=== PATIENT | male | born 1990 | race Caucasian/White ===

== ENCOUNTER 2023-07-06 16:28 | Emergency (ER) | payer OTHER ==
[2023-07-06 16:43] VITALS: TEMP 98.5; BMI 25.9
[2023-07-06] MEDS ORDERED: HALOPERIDOL LACTATE 5 MG/ML IM ONE (17:19)
[2023-07-06] MEDS ORDERED: HALOPERIDOL LACTATE 5 MG/ML ONE (17:23)
[2023-07-06 18:33] LABS: BASO % 0.2 % (0-2.0); HEMATOCRIT 45.8 % (35.4-49); HEMOGLOBIN 15.4 GM/dL (11.7-16.9); MCH 28.2 pg (25.7-33.7); MCHC 33.6 g/dl (32.0-35.9); MEAN PLT VOLUME 8.2 fl (7.5-11.1); MONO % 1.1 % (3.8-10.2); NEUT % 87.7 % (42.8-82.8); PLATELET COUNT 243 10^3/uL (134-434); RBC 5.46 M/mm3 (4.00-5.60); RDW 14.1 % (11.9-15.9); WHITE BLOOD COUNT 10.7 K/mm3 (4.0-10.0)
[2023-07-06 18:58] LABS: POTASSIUM 3.9 mmol/L (3.5-5.1)
[2023-07-06 19:00] LABS: CALCIUM 9.6 mg/dL (8.5-10.1)
[2023-07-06 19:01] LABS: ALBUMIN 4.6 g/dl (3.4-5.0); BLOOD UREA NITROGEN 13.4 mg/dL (7-18)
[2023-07-06 19:04] LABS: CREATININE 0.8 mg/dL (0.55-1.3)
[2023-07-06 19:05] LABS: BILIRUBIN,TOTAL 0.4 mg/dL (0.2-1); TOT PROT 8.4 g/dl (6.4-8.2)
[2023-07-06 20:01] VITALS: BP 161/79; PULSE 80; RESP 19
== END 2023-07-06 20:07 | disposition home or self-care (01) ==
LOC: JER 16:28
PROC: 3E023GC Introduction of Other Therapeutic Substance into Muscle, Percutaneous Approach (ICD-10-PCS; principal; 2023-07-06)
DX: R10.13 Epigastric pain (principal); R11.2 Nausea with vomiting, unspecified; F11.20 Opioid dependence, uncomplicated
CPT/HCPCS: 36415; 80053; 83690; 85025; 99284-25

== ENCOUNTER 2023-07-06 21:16 | Inpatient (IN) | payer OTHER ==
[2023-07-06 15:47] VITALS: BMI 25.9
[~2023-07-06 21:16] MED LIST: TRIMETHOBENZAMIDE HCL 200MG/2ML INJ IM ONE
[2023-07-07] MEDS ORDERED: NALOXONE HCL 0.4 MG/ML VIAL IM PRN (00:04)
[2023-07-07] MEDS ORDERED: LOPERAMIDE HCL 2 MG CAPSULE PO PRN (00:04)
[2023-07-07] MEDS ORDERED: MAGNESIUM HYDROX 2400MG/30ML ORAL SUSPENSION 30 ML CUP PO PRN (00:04)
[2023-07-07] MEDS ORDERED: ONDANSETRON *ODT* 4 MG TABLET SL PRN (00:04)
[2023-07-07] MEDS ORDERED: NALOXONE HCL (KLOXXADO) 8 MG SPRAY NS PRN (00:04)
[2023-07-07] MEDS ORDERED: BISMUTH SUBSALICYLATE 524 MG/30 ML PO PRN (00:04)
[2023-07-07] MEDS ORDERED: guaiFENesin 600 MG TABLET.ER (FP) PO PRN (00:04)
[2023-07-07] MEDS ORDERED: POLYETHYLENE GLYCOL (HEALTHYLAX) 3350 17 GM PACKET PO PRN (00:04)
[2023-07-07] MEDS ORDERED: NICOTINE POLACRILEX 2 MG GUM BUC PRN (00:04)
[2023-07-07] MEDS ORDERED: BENZONATATE 200 MG CAPSULE PO PRN (00:04)
[2023-07-07] MEDS ORDERED: DICYCLOMINE HCL 10 MG CAPSULE PO PRN (00:04)
[2023-07-07] MEDS ORDERED: BENZOCAINE/MENTHOL (CHLORASEPTIC ) LOZENGE MM PRN (00:04)
[2023-07-07] MEDS ORDERED: IBUPROFEN 400 MG TABLET (FP) PO PRN (00:04)
[2023-07-07] MEDS ORDERED: ACETAMINOPHEN 325 MG TABLET (FP) PO PRN (00:04)
[2023-07-07] MEDS: hydrOXYzine PAMOATE 25 MG CAPSULE (FP) PO PRN ×3 (00:34→22:08)
[2023-07-07] MEDS ORDERED: cloNIDine HCL 0.1 MG TABLET PO ONE (00:45)
[2023-07-07] MEDS: IBUPROFEN 600 MG TABLET (FP) PO PRN (06:03)
[2023-07-07] MEDS: PRENATAL VITAMINS W/ FOLIC ACID TABLET (FP) PO SCH (10:09)
[2023-07-07] MEDS: NICOTINE 21 MG/24 HOURS TOPICAL PATCH TD SCH (10:10)
[2023-07-07] MEDS: BUPRENORPHINE/NALOXONE 2 MG/0.5 MG FILM PACKET SL SCH (10:41)
[2023-07-07] MEDS: BUPRENORPHINE/NALOXONE 4 MG/1 MG FILM PACKET SL SCH (10:41)
[2023-07-07] MEDS: MAG HYDROX/AL HYDROX/SIMETH 30 ML UNIT-DOSE CUP PO PRN (13:01)
[2023-07-07] MEDS: diazePAM 5 MG TABLET PO PRN (17:43)
[2023-07-07] MEDS: METHOCARBAMOL 500 MG TABLET PO PRN (22:08)
[2023-07-07] MEDS: THIAMINE HCL 100 MG TABLET (FP) PO SCH (22:08)
[2023-07-07] MEDS: MELATONIN 5 MG TABLETS PO SCH (22:08)
[2023-07-08] MEDS: diazePAM 5 MG TABLET PO PRN ×4 (01:37→22:16)
[2023-07-08] MEDS: METHOCARBAMOL 500 MG TABLET PO PRN ×3 (06:18→22:15)
[2023-07-08] MEDS: hydrOXYzine PAMOATE 25 MG CAPSULE (FP) PO PRN ×3 (06:18→22:16)
[2023-07-08] MEDS: BUPRENORPHINE/NALOXONE 4 MG/1 MG FILM PACKET SL SCH (10:14)
[2023-07-08] MEDS: BUPRENORPHINE/NALOXONE 2 MG/0.5 MG FILM PACKET SL SCH (10:14)
[2023-07-08] MEDS: NICOTINE 21 MG/24 HOURS TOPICAL PATCH TD SCH (10:14)
[2023-07-08] MEDS: PRENATAL VITAMINS W/ FOLIC ACID TABLET (FP) PO SCH (10:14)
[2023-07-08 11:43] LABS: POTASSIUM 3.4 mmol/L (3.5-5.1)
[2023-07-08 11:53] LABS: ALBUMIN 4.4 g/dl (3.4-5.0); CALCIUM 9.3 mg/dL (8.5-10.1)
[2023-07-08 11:56] LABS: CREATININE 0.8 mg/dL (0.55-1.3)
[2023-07-08 11:58] LABS: BILIRUBIN,TOTAL 0.7 mg/dL (0.2-1); TOT PROT 8.1 g/dl (6.4-8.2)
[2023-07-08 12:06] LABS: HEMATOCRIT 43.9 % (35.4-49); HEMOGLOBIN 14.9 GM/dL (11.7-16.9); MCH 28.4 pg (25.7-33.7); MEAN CELL VOLUME 83.6 fl (80-96); MEAN PLT VOLUME 8.8 fl (7.5-11.1); PLATELET COUNT 252 10^3/uL (134-434); RBC 5.25 M/mm3 (4.00-5.60); RDW 14.2 % (11.9-15.9); WHITE BLOOD COUNT 9.8 K/mm3 (4.0-10.0)
[2023-07-08] MEDS: GABAPENTIN 100 MG CAPSULE PO SCH ×2 (13:33→22:16)
[2023-07-08] MEDS ORDERED: POTASSIUM CHLORIDE ORAL LIQUID 20 MEQ/15 ML PO ONE (15:07)
[2023-07-08] MEDS: MELATONIN 5 MG TABLETS PO SCH (22:15)
[2023-07-08] MEDS: THIAMINE HCL 100 MG TABLET (FP) PO SCH (22:15)
[2023-07-08] MEDS: POTASSIUM CHLORIDE ORAL LIQUID 20 MEQ/15 ML PO SCH (22:18)
[2023-07-09] MEDS: IBUPROFEN 600 MG TABLET (FP) PO PRN (04:00)
[2023-07-09] MEDS: diazePAM 5 MG TABLET PO PRN ×4 (04:00→18:27)
[2023-07-09] MEDS: GABAPENTIN 100 MG CAPSULE PO SCH ×2 (05:25→13:07)
[2023-07-09] MEDS ORDERED: BUPRENORPHINE/NALOXONE 8 MG/2 MG FILM PACKET SL SCH (06:00)
[2023-07-09] MEDS ORDERED: FLUoxetine HCL 20 MG CAPSULE PO SCH (10:00)
[2023-07-09] MEDS: PRENATAL VITAMINS W/ FOLIC ACID TABLET (FP) PO SCH (10:22)
[2023-07-09] MEDS: POTASSIUM CHLORIDE ORAL LIQUID 20 MEQ/15 ML PO SCH (10:22)
[2023-07-09] MEDS: NICOTINE 21 MG/24 HOURS TOPICAL PATCH TD SCH (10:26)
[2023-07-09] MEDS: MAG HYDROX/AL HYDROX/SIMETH 30 ML UNIT-DOSE CUP PO PRN (12:17)
[2023-07-09] MEDS: hydrOXYzine PAMOATE 25 MG CAPSULE (FP) PO PRN (13:09)
[2023-07-09 13:39] VITALS: PULSE 72
[2023-07-09 17:10] VITALS: BP 123/76; RESP 18; TEMP 98.2
== END 2023-07-09 18:34 | disposition other institution (70) | DRG 773 ==
LOC: YASAS 21:16 → Y3N 07-07 01:03
PROVIDERS: ADMIT Allergy & Immunology; ATTEND Psychiatry & Neurology Pain Medicine
PROC: HZ2ZZZZ Detoxification Services for Substance Abuse Treatment (ICD-10-PCS; principal; 2023-07-06)
DX: F11.23 Opioid dependence with withdrawal (principal); F14.20 Cocaine dependence, uncomplicated; F17.210 Nicotine dependence, cigarettes, uncomplicated; F19.24 Other psychoactive substance dependence with psychoactive substance-induced mood disorder; Z28.310 Unvaccinated for COVID-19; Z28.9 Immunization not carried out for unspecified reason; Z91.199 Patient's noncompliance with other medical treatment and regimen due to unspecified reason
CPT/HCPCS: 36415; 80053; 80307; 84132; 85027; 86780; 87635; 93005; 93010; Q0162

== ENCOUNTER 2023-07-09 18:43 | Inpatient (IN) | payer OTHER ==
[2023-07-09] MEDS ORDERED: COLLOIDAL OATMEAL 1 BAR EACH TP PRN (19:25)
[2023-07-09] MEDS ORDERED: MAG HYDROX/AL HYDROX/SIMETH 30 ML UNIT-DOSE CUP PO PRN (19:25)
[2023-07-09] MEDS ORDERED: METHOCARBAMOL 500 MG TABLET PO PRN (19:25)
[2023-07-09] MEDS ORDERED: IBUPROFEN 600 MG TABLET (FP) PO PRN (19:25)
[2023-07-09] MEDS ORDERED: ACETAMINOPHEN 325 MG TABLET (FP) PO PRN (19:25)
[2023-07-09] MEDS ORDERED: IBUPROFEN 400 MG TABLET (FP) PO PRN (19:25)
[2023-07-09] MEDS ORDERED: BENZONATATE 200 MG CAPSULE PO PRN (19:25)
[2023-07-09] MEDS ORDERED: guaiFENesin 600 MG TABLET.ER (FP) PO PRN (19:25)
[2023-07-09] MEDS ORDERED: LOPERAMIDE HCL 2 MG CAPSULE PO PRN (19:25)
[2023-07-09] MEDS ORDERED: P-EPHED 60MG/TRIPROLIDI 2.5MG TABLET PO PRN (19:25)
[2023-07-09] MEDS ORDERED: MAGNESIUM HYDROX 2400MG/30ML ORAL SUSPENSION 30 ML CUP PO PRN (19:25)
[2023-07-09] MEDS ORDERED: hydrOXYzine PAMOATE 25 MG CAPSULE (FP) PO PRN (19:25)
[2023-07-09] MEDS ORDERED: POLYETHYLENE GLYCOL (HEALTHYLAX) 3350 17 GM PACKET PO PRN (19:25)
[2023-07-09] MEDS: THIAMINE HCL 100 MG TABLET (FP) PO SCH (21:15)
[2023-07-09] MEDS: MELATONIN 5 MG TABLETS PO SCH (21:15)
[2023-07-09] MEDS: GABAPENTIN 100 MG CAPSULE PO SCH (21:15)
[2023-07-10] MEDS: GABAPENTIN 100 MG CAPSULE PO SCH ×3 (06:10→21:02)
[2023-07-10] MEDS: BUPRENORPHINE/NALOXONE 8 MG/2 MG FILM PACKET SL SCH (06:11)
[2023-07-10] MEDS ORDERED: BUPRENORPHINE/NALOXONE 8 MG/2 MG FILM PACKET SL SCH (10:00)
[2023-07-10] MEDS: FLUoxetine HCL 20 MG CAPSULE PO SCH (10:23)
[2023-07-10] MEDS: PRENATAL VITAMINS W/ FOLIC ACID TABLET (FP) PO SCH (10:23)
[2023-07-10] MEDS: MELATONIN 5 MG TABLETS PO SCH (21:02)
[2023-07-10] MEDS: THIAMINE HCL 100 MG TABLET (FP) PO SCH (21:02)
[2023-07-11] MEDS: GABAPENTIN 100 MG CAPSULE PO SCH ×3 (06:28→21:13)
[2023-07-11] MEDS: BUPRENORPHINE/NALOXONE 8 MG/2 MG FILM PACKET SL SCH (06:28)
[2023-07-11] MEDS: PRENATAL VITAMINS W/ FOLIC ACID TABLET (FP) PO SCH (09:28)
[2023-07-11] MEDS: FLUoxetine HCL 20 MG CAPSULE PO SCH (09:28)
[2023-07-11] MEDS: NICOTINE 14 MG/24 HOURS TOPICAL PATCH TD SCH (12:05)
[2023-07-11] MEDS: MELATONIN 5 MG TABLETS PO SCH (21:13)
[2023-07-11] MEDS: THIAMINE HCL 100 MG TABLET (FP) PO SCH (21:13)
[2023-07-12] MEDS: GABAPENTIN 100 MG CAPSULE PO SCH ×3 (06:24→21:17)
[2023-07-12] MEDS: BUPRENORPHINE/NALOXONE 8 MG/2 MG FILM PACKET SL SCH (06:24)
[2023-07-12] MEDS: PRENATAL VITAMINS W/ FOLIC ACID TABLET (FP) PO SCH (09:49)
[2023-07-12] MEDS: NICOTINE 14 MG/24 HOURS TOPICAL PATCH TD SCH (09:49)
[2023-07-12] MEDS: FLUoxetine HCL 20 MG CAPSULE PO SCH (09:49)
[2023-07-12] MEDS: BENZOCAINE/MENTHOL (CHLORASEPTIC ) LOZENGE MM PRN (19:41)
[2023-07-12] MEDS: MELATONIN 5 MG TABLETS PO SCH (21:17)
[2023-07-12] MEDS: THIAMINE HCL 100 MG TABLET (FP) PO SCH (21:17)
[2023-07-13] MEDS: GABAPENTIN 100 MG CAPSULE PO SCH ×3 (06:43→21:19)
[2023-07-13] MEDS: BUPRENORPHINE/NALOXONE 8 MG/2 MG FILM PACKET SL SCH (06:43)
[2023-07-13] MEDS: BENZOCAINE/MENTHOL (CHLORASEPTIC ) LOZENGE MM PRN ×2 (06:43→18:59)
[2023-07-13] MEDS: NICOTINE 14 MG/24 HOURS TOPICAL PATCH TD SCH (09:55)
[2023-07-13] MEDS: PRENATAL VITAMINS W/ FOLIC ACID TABLET (FP) PO SCH (09:56)
[2023-07-13] MEDS: FLUoxetine HCL 20 MG CAPSULE PO SCH (09:56)
[2023-07-13] MEDS: MELATONIN 5 MG TABLETS PO SCH (21:19)
[2023-07-13] MEDS: THIAMINE HCL 100 MG TABLET (FP) PO SCH (21:19)
[2023-07-14] MEDS: BUPRENORPHINE/NALOXONE 8 MG/2 MG FILM PACKET SL SCH (06:21)
[2023-07-14] MEDS: GABAPENTIN 100 MG CAPSULE PO SCH ×3 (06:21→21:32)
[2023-07-14] MEDS: BENZOCAINE/MENTHOL (CHLORASEPTIC ) LOZENGE MM PRN ×2 (06:22→21:33)
[2023-07-14] MEDS: NICOTINE 14 MG/24 HOURS TOPICAL PATCH TD SCH (09:48)
[2023-07-14] MEDS: FLUoxetine HCL 20 MG CAPSULE PO SCH (09:49)
[2023-07-14] MEDS: PRENATAL VITAMINS W/ FOLIC ACID TABLET (FP) PO SCH (09:49)
[2023-07-14] MEDS: AMMONIUM LACTATE 12% LOTION 225 GM BOTTLE TP PRN (14:45)
[2023-07-14] MEDS: NICOTINE POLACRILEX 4 MG GUM BUC PRN (14:46)
[2023-07-14] MEDS: THIAMINE HCL 100 MG TABLET (FP) PO SCH (21:32)
[2023-07-14] MEDS: MELATONIN 5 MG TABLETS PO SCH (21:32)
[2023-07-15] MEDS: BUPRENORPHINE/NALOXONE 8 MG/2 MG FILM PACKET SL SCH (06:25)
[2023-07-15] MEDS: GABAPENTIN 100 MG CAPSULE PO SCH ×3 (06:25→21:14)
[2023-07-15] MEDS: BENZOCAINE/MENTHOL (CHLORASEPTIC ) LOZENGE MM PRN (06:26)
[2023-07-15] MEDS: NICOTINE 14 MG/24 HOURS TOPICAL PATCH TD SCH (09:46)
[2023-07-15] MEDS: PRENATAL VITAMINS W/ FOLIC ACID TABLET (FP) PO SCH (09:46)
[2023-07-15] MEDS: FLUoxetine HCL 20 MG CAPSULE PO SCH (09:46)
[2023-07-15] MEDS: NICOTINE POLACRILEX 4 MG GUM BUC PRN (09:47)
[2023-07-15] MEDS: THIAMINE HCL 100 MG TABLET (FP) PO SCH (21:13)
[2023-07-15] MEDS: MELATONIN 5 MG TABLETS PO SCH (21:13)
[2023-07-16] MEDS: GABAPENTIN 100 MG CAPSULE PO SCH ×3 (06:30→21:13)
[2023-07-16] MEDS: BUPRENORPHINE/NALOXONE 8 MG/2 MG FILM PACKET SL SCH (06:31)
[2023-07-16] MEDS: BENZOCAINE/MENTHOL (CHLORASEPTIC ) LOZENGE MM PRN (06:31)
[2023-07-16] MEDS: NICOTINE 14 MG/24 HOURS TOPICAL PATCH TD SCH (10:06)
[2023-07-16] MEDS: FLUoxetine HCL 20 MG CAPSULE PO SCH (10:06)
[2023-07-16] MEDS: NICOTINE POLACRILEX 4 MG GUM BUC PRN (10:07)
[2023-07-16] MEDS: PRENATAL VITAMINS W/ FOLIC ACID TABLET (FP) PO SCH (10:07)
[2023-07-16] MEDS: MELATONIN 5 MG TABLETS PO SCH (21:13)
[2023-07-16] MEDS: THIAMINE HCL 100 MG TABLET (FP) PO SCH (21:13)
[2023-07-17] MEDS: GABAPENTIN 100 MG CAPSULE PO SCH ×3 (06:31→21:15)
[2023-07-17] MEDS: BUPRENORPHINE/NALOXONE 8 MG/2 MG FILM PACKET SL SCH (06:44)
[2023-07-17] MEDS: FLUoxetine HCL 20 MG CAPSULE PO SCH (09:55)
[2023-07-17] MEDS: NICOTINE 14 MG/24 HOURS TOPICAL PATCH TD SCH (09:55)
[2023-07-17] MEDS: PRENATAL VITAMINS W/ FOLIC ACID TABLET (FP) PO SCH (09:55)
[2023-07-17] MEDS: NICOTINE POLACRILEX 4 MG GUM BUC PRN (09:57)
[2023-07-17] MEDS: AMMONIUM LACTATE 12% LOTION 225 GM BOTTLE TP PRN (18:07)
[2023-07-17] MEDS: THIAMINE HCL 100 MG TABLET (FP) PO SCH (21:15)
[2023-07-17] MEDS: MELATONIN 5 MG TABLETS PO SCH (21:15)
[2023-07-18] MEDS: GABAPENTIN 100 MG CAPSULE PO SCH ×3 (05:50→21:05)
[2023-07-18] MEDS: BUPRENORPHINE/NALOXONE 8 MG/2 MG FILM PACKET SL SCH (05:51)
[2023-07-18] MEDS: NICOTINE 14 MG/24 HOURS TOPICAL PATCH TD SCH (09:16)
[2023-07-18] MEDS: FLUoxetine HCL 20 MG CAPSULE PO SCH (09:17)
[2023-07-18] MEDS: PRENATAL VITAMINS W/ FOLIC ACID TABLET (FP) PO SCH (09:17)
[2023-07-18] MEDS: THIAMINE HCL 100 MG TABLET (FP) PO SCH (21:05)
[2023-07-18] MEDS: MELATONIN 5 MG TABLETS PO SCH (21:05)
[2023-07-19] MEDS: GABAPENTIN 100 MG CAPSULE PO SCH ×3 (06:23→21:09)
[2023-07-19] MEDS: BUPRENORPHINE/NALOXONE 8 MG/2 MG FILM PACKET SL SCH (06:24)
[2023-07-19] MEDS: PRENATAL VITAMINS W/ FOLIC ACID TABLET (FP) PO SCH (09:33)
[2023-07-19] MEDS: FLUoxetine HCL 20 MG CAPSULE PO SCH (09:33)
[2023-07-19] MEDS: NICOTINE 14 MG/24 HOURS TOPICAL PATCH TD SCH (09:33)
[2023-07-19] MEDS: BENZOCAINE/MENTHOL (CHLORASEPTIC ) LOZENGE MM PRN (11:32)
[2023-07-19] MEDS: MELATONIN 5 MG TABLETS PO SCH (21:09)
[2023-07-19] MEDS: THIAMINE HCL 100 MG TABLET (FP) PO SCH (21:09)
[2023-07-20] MEDS: GABAPENTIN 100 MG CAPSULE PO SCH ×3 (06:15→21:22)
[2023-07-20] MEDS: BUPRENORPHINE/NALOXONE 8 MG/2 MG FILM PACKET SL SCH (06:15)
[2023-07-20] MEDS: PRENATAL VITAMINS W/ FOLIC ACID TABLET (FP) PO SCH (09:30)
[2023-07-20] MEDS: FLUoxetine HCL 20 MG CAPSULE PO SCH (09:30)
[2023-07-20] MEDS: NICOTINE 14 MG/24 HOURS TOPICAL PATCH TD SCH (09:30)
[2023-07-20] MEDS: NICOTINE POLACRILEX 4 MG GUM BUC PRN (09:31)
[2023-07-20] MEDS: THIAMINE HCL 100 MG TABLET (FP) PO SCH (21:22)
[2023-07-20] MEDS: MELATONIN 5 MG TABLETS PO SCH (21:22)
[2023-07-21] MEDS: GABAPENTIN 100 MG CAPSULE PO SCH (06:22)
[2023-07-21] MEDS: BUPRENORPHINE/NALOXONE 8 MG/2 MG FILM PACKET SL SCH (06:22)
[2023-07-21 08:31] VITALS: BP 107/70; PULSE 71; RESP 17; TEMP 98.1
[2023-07-21] MEDS: NICOTINE 14 MG/24 HOURS TOPICAL PATCH TD SCH (09:22)
[2023-07-21] MEDS: FLUoxetine HCL 20 MG CAPSULE PO SCH (09:22)
[2023-07-21] MEDS: PRENATAL VITAMINS W/ FOLIC ACID TABLET (FP) PO SCH (09:22)
== END 2023-07-21 09:27 | disposition home or self-care (01) | DRG 772 ==
LOC: YASAS 18:43 → Y3E 18:44
PROVIDERS: ADMIT Allergy & Immunology; ATTEND Psychiatry & Neurology Pain Medicine
PROC: HZ42ZZZ Group Counseling for Substance Abuse Treatment, Cognitive-Behavioral (ICD-10-PCS; principal; 2023-07-09)
DX: F11.20 Opioid dependence, uncomplicated (principal); F14.20 Cocaine dependence, uncomplicated; F17.210 Nicotine dependence, cigarettes, uncomplicated; F19.24 Other psychoactive substance dependence with psychoactive substance-induced mood disorder; F31.9 Bipolar disorder, unspecified; F41.9 Anxiety disorder, unspecified; J02.9 Acute pharyngitis, unspecified; J06.9 Acute upper respiratory infection, unspecified
CPT/HCPCS: 0241U-QW; 36415; 80053; 82962; 83690; 85025; 93005; 93010; 99284-25